=== PATIENT | male | born 1960 | race African-American/Black ===

== ENCOUNTER 2016-11-24 14:25 | Emergency (ER) | payer MEDICARE, MEDICAID ==
[2016-11-24 14:49] VITALS: BP 144/88
[2016-11-24] MEDS ORDERED: HYDROCODONE/ACETAMINOPHEN 5-325 MG 6 TAB/DSPK PO PRN (16:06)
--- NOTE | 2016-11-24 16:10 | ER Document Report ---
ED Hip Pain/Injury - General Chief Complaint: Hip Pain Stated Complaint: LEFT HIP PAIN Time Seen by Provider: 11/24/16 15:40 Mode of Arrival: Ambulatory Information source: Patient Notes: 56-year-old male presents to ED for complaint of pain with ambulation due to a hip replacement in January 2016. He states his been painful since then but states the pain is getting worse. He states that he went to his primary care today and they did not get any kind of pain medicine. States he has pain for his neuropathy and they have given him steroids at times but not give him any more narcotics. States that he does not go to his orthopedic doctor again today at some. States that they are doing a bone scan later this week for possible problems with the other hip now. TRAVEL OUTSIDE OF THE [place] IN LAST 30 DAYS: No - HPI Patient complains to provider of: Pain, Hip Occurred: Other - Since January Onset/Duration: Persistent Quality of pain: Pressure, Throbbing Severity: Moderate Pain Level: 3 Context: Other Symptoms prior to fall: None Symptoms since fall: None Rotation of extremity: None Pain with palpation of the pelvis: No Associated Symptoms: None - Related Data Allergies/Adverse Reactions: Penicillins Adverse Reaction (Mild, Verified 12/11/15 14:49) Nausea Past Medical History - General Information source: Patient - Social History Smoking Status: Never Smoker Cigarette use (# per day): No Chew tobacco use (# tins/day): No Smoking Education Provided: No Frequency of alcohol use: None Drug Abuse: None Occupation: Disabled Lives with: Friend Family History: Reviewed & Not Pertinent Patient has suicidal ideation: No Patient has homicidal ideation: No - Past Medical History Cardiac Medical History: Reports: Hx Hypercholesterolemia, Hx Hypertension Pulmonary Medical History: Reports: None EENT Medical History: Reports: None Neurological Medical History: Reports: None Endocrine Medical History: Reports: Hx Diabetes Mellitus Type 2 Renal/ Medical History: Reports: None Malignancy Medical History: Reports None GI Medical History: Reports: Hx Gastroesophageal Reflux Disease Musculoskeltal Medical History: Reports Hx Arthritis, Reports Hx Gout, Reports Hx Musculoskeletal Deformity Skin Medical History: Reports None Psychiatric Medical History: Reports: Hx Anxiety, Hx Depression - anxiety Traumatic Medical History: Reports: None Infectious Medical History: Reports: None Past Surgical History: Reports: Hx Orthopedic Surgery - Left hip replacement - Immunizations Hx Diphtheria, Pertussis, Tetanus Vaccination: Yes Review of Systems - Review of Systems Constitutional: No symptoms reported EENT: No symptoms reported Cardiovascular: No symptoms reported Respiratory: No symptoms reported Gastrointestinal: No symptoms reported Genitourinary: No symptoms reported Male Genitourinary: No symptoms reported Musculoskeletal: Other - Pain in left thigh. Full range of motion of hip but with pain in the thigh not to the hip joint. No swelling no change in appearance. States it hurts and he has to limp sometimes walk. Skin: No symptoms reported Hematologic/Lymphatic: No symptoms reported Neurological/Psychological: No symptoms reported -: Yes All other systems reviewed and negative Physical Exam - Vital signs Vitals: Temp Pulse Resp BP Pulse Ox 98.9 F 83 20 144/88 H 100 11/24/16 14:46 11/24/16 14:46 11/24/16 14:46 11/24/16 14:46 11/24/16 14:46 Interpretation: Normal - General General appearance: Appears well, Alert - HEENT Head: Normocephalic, Atraumatic Eyes: Normal Pupils: PERRL - Respiratory Respiratory status: No respiratory distress Chest status: Nontender Breath sounds: Normal Chest palpation: Normal - Cardiovascular Rhythm: Regular Heart sounds: Normal auscultation Murmur: No - Abdominal Inspection: Normal Distension: No distension Bowel sounds: Normal Tenderness: Nontender Organomegaly: No organomegaly - Back Back: Normal, Nontender - Extremities General upper extremity: Normal inspection, Nontender, Normal color, Normal ROM , Normal temperature General lower extremity: Normal inspection, Normal color, Normal ROM, Normal temperature, Normal weight bearing. No: Cristian's sign Thigh: Tender - Left femur proximal. States he had a hip replacement in January in the thighs hurt since then. No actual tenderness to the hip joint. No redness no swelling no signs of infection or inflammation. Patient is able to ambulate - Neurological Neuro grossly intact: Yes Cognition: Normal Orientation: AAOx4 Phu Coma Scale Eye Opening: Spontaneous [place] Coma Scale Verbal: Oriented [place] Coma Scale Motor: Obeys Commands Phu Coma Scale Total: 15 Speech: Normal Motor strength normal: LUE, RUE, LLE, RLE Sensory: Normal - Psychological Associated symptoms: Normal affect, Normal mood - Skin Skin Temperature: Warm Skin Moisture: Dry Skin Color: Normal Course - Re-evaluation Re-evalutation: 11/24/16 16:14 We will give patient a 6 pack of [place] told him he needs to follow-up with orthopedics right away if he continues to have pain. There is no signs or symptoms of any fracture he has not fallen has not injured himself. Have instructed patient that we cannot continue to give narcotics but we will give this one sixpack and he had and he needs to follow-up with his orthopedic doctor. - Vital Signs Vital signs: Temp Pulse Resp BP Pulse Ox 98.9 F 83 20 144/88 H 100 11/24/16 14:46 11/24/16 14:46 11/24/16 14:46 11/24/16 14:46 11/24/16 14:46 Discharge - Discharge Clinical Impression: Hip pain Qualifiers: Laterality: left Qualified Code(s): M25.552 - Pain in left hip Condition: Stable Disposition: HOME, SELF-CARE Additional Instructions: Chronic Pain Control Stress, inactivity, and depression make pain more severe regardless of the cause of the pain. Stress and poor physical condition can cause pain such as headaches and backache. Relaxation: Rest in a quiet place with your eyes closed for 20 minutes twice daily. Concentrate on a pleasant image, or simply "feel" your breathing. Clear your mind. Stress management: Deal with your "stressors." Either take action, or eliminate the stressor from your life. Don't let things hang over you. Accept those things you can't change. Nutrition: Eat small, balanced meals -- don't skip, don't overeat. Meals should be high-carbohydrate, low-sugar, low-fat. Exercise: Exercise helps painful conditions and eases stress. Get 30 minutes of moderate exercise, five days a week. Do an activity that does not flare your pain. Precautions: Pain which continues to disrupt daily activities, or which changes in nature, requires a medical evaluation. Pain Clinic referral is available. We do not manage chronic pain in the Emergency Department. 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 We do not provide repeated medication management of chronic painful conditions. If you wish, we can provide the name of local pain management physicians. Oral Narcotic Medication we do not usually treat chronic pain with narcotics but I will give you a sixpack to you can follow-up with the orthopedic doctor please call first thing in the morning and schedule an appointment as we will not be able to continue to give you [place] You have been given a [place] dispense pack for pain control. This medication is a narcotic. It's best taken with food, as nausea can result if taken on an empty stomach. Don't operate machinery or drive within six hours of taking this medication. Do not combine this medicine with alcohol, or with any medication which can cause sedation (such as cold tablets or sleeping pills) unless you get permission from the physician. Narcotics tend to cause constipation. If possible, drink plenty of fluids and eat a diet high in fiber and fruits. Ice Packs Apply ice packs frequently against the painful area. Many different schedules are recommended, such as "20 minutes on, 20 minutes off" or "one hour ice, two hours rest." If you need to work, you may need to go longer between ice treatments. You should plan to have the area ice packed AT LEAST one fourth of the time. The ice should be applied over the wrap, tape, or splint, or over a layer of cloth -- not directly against the skin. Some ice bags have a built-in cloth and can be put directly on the skin. USE OF [id number] IBUPROFEN: Ibuprofen (Advil, Nuprin, Medipren, Motrin IB) is a medication for fever and pain control. In addition, it has anti- inflammatory effects which may be beneficial, especially in the treatment of injuries. It's best to take ibuprofen with food. Persons with ulcer disease or allergy to aspirin should notify their physician of this before taking ibuprofen. Ibuprofen can be given every four to six hours, for a total of four doses daily. Age Pain or fever dose Antiinflammatory dose 6-8 yr 200 mg (1 tab) 200 mg (1 tab) 9-11 yr 200 mg (1 tab) 200-400 mg (1-2 tab) 11-14 yr 200-400 mg (1-2 tab) 400 mg (2 tab) 15-adult 400 mg (2 tab) 600 mg (3 tab) FOLLOW-UP CARE: If you have been referred to a physician for follow-up care, call the physician s office for an appointment as you were instructed or within the next two days. If you experience worsening or a significant change in your symptoms, notify the physician immediately or return to the Emergency Department at any time for re-evaluation. Forms: Elevated Blood Pressure
== END 2016-11-24 16:31 | disposition home or self-care (01) ==
LOC: ER 14:25
DX: M25.552 Pain in left hip (principal); Z96.642 Presence of left artificial hip joint; E11.40 Type 2 diabetes mellitus with diabetic neuropathy, unspecified; M79.652 Pain in left thigh; I10 Essential (primary) hypertension
CPT/HCPCS: 99283

== ENCOUNTER 2016-12-31 13:18 | Emergency (ER) | payer MEDICARE, MEDICAID ==
[2016-12-31] MEDS ORDERED: KETOROLAC TROMETHAMINE 60 MG/2 ML SDV IM ONE (14:39)
--- NOTE | 2016-12-31 14:45 | ER Document Report ---
ED Hip Pain/Injury - General Chief Complaint: Hip Injury Stated Complaint: HIP PAIN Time Seen by Provider: 12/31/16 14:29 Notes: 56 yo male c/o right groin pain x 2 days. pt reports pain while doing straight leg lifts. TRAVEL OUTSIDE OF THE [place] IN LAST 30 DAYS: No - HPI Patient complains to provider of: Pain Occurred: Yesterday Where: Home Onset/Duration: Gradual Quality of pain: Achy, Sharp Skin Color: Normal Skin Temperature: Warm Rotation of extremity: None Pain with palpation of the pelvis: No Associated Symptoms: None - Related Data Allergies/Adverse Reactions: Penicillins Adverse Reaction (Mild, Verified 12/31/16 13:22) Nausea Past Medical History - General Information source: Patient - Social History Smoking Status: Unknown if Ever Smoked Frequency of alcohol use: None Drug Abuse: None Lives with: Family Family History: Reviewed & Not Pertinent Patient has suicidal ideation: No Patient has homicidal ideation: No - Past Medical History Cardiac Medical History: Reports: Hx Hypercholesterolemia, Hx Hypertension Endocrine Medical History: Reports: Hx Diabetes Mellitus Type 2 Renal/ Medical History: Denies: Hx Peritoneal Dialysis GI Medical History: Reports: Hx Gastroesophageal Reflux Disease Musculoskeltal Medical History: Reports Hx Arthritis, Reports Hx Gout, Reports Hx Musculoskeletal Deformity Psychiatric Medical History: Reports: Hx Anxiety, Hx Depression - anxiety Past Surgical History: Reports: Hx Orthopedic Surgery - Left hip replacement - Immunizations Hx Diphtheria, Pertussis, Tetanus Vaccination: Yes Review of Systems - Review of Systems Constitutional: No symptoms reported EENT: No symptoms reported Cardiovascular: No symptoms reported Respiratory: No symptoms reported Gastrointestinal: No symptoms reported Genitourinary: No symptoms reported Male Genitourinary: No symptoms reported Musculoskeletal: No symptoms reported Skin: No symptoms reported Hematologic/Lymphatic: No symptoms reported Neurological/Psychological: No symptoms reported Physical Exam - Vital signs Vitals: Temp Pulse Resp BP Pulse Ox 98.1 F 78 20 122/74 99 12/31/16 13:22 12/31/16 13:22 12/31/16 13:22 12/31/16 13:22 12/31/16 13:22 Interpretation: Normal - General General appearance: Appears well, Alert - HEENT Head: Normocephalic, Atraumatic Eyes: Normal Pupils: PERRL - Respiratory Respiratory status: No respiratory distress Chest status: Nontender Breath sounds: Normal Chest palpation: Normal - Cardiovascular Rhythm: Regular Heart sounds: Normal auscultation Murmur: No - Abdominal Inspection: Normal Distension: No distension Bowel sounds: Normal Tenderness: Nontender Organomegaly: No organomegaly - Back Back: Normal, Nontender - Extremities General upper extremity: Normal inspection, Nontender, Normal color, Normal ROM , Normal temperature General lower extremity: Normal inspection, Normal color, Normal ROM, Normal temperature, Normal weight bearing Hip: Tender - focal tenderness over right hip flexors, ileopsoasis and sartorius muscles. no iliac tenderness. FROM with hip. distal SMC intact. able to walk without difficulty - Neurological Neuro grossly intact: Yes Cognition: Normal Orientation: AAOx4 Phu Coma Scale Eye Opening: Spontaneous [place] Coma Scale Verbal: Oriented [place] Coma Scale Motor: Obeys Commands Phu Coma Scale Total: 15 Speech: Normal Motor strength normal: LUE, RUE, LLE, RLE Sensory: Normal - Psychological Associated symptoms: Normal affect, Normal mood - Skin Skin Temperature: Warm Skin Moisture: Dry Skin Color: Normal Course - Re-evaluation Re-evalutation: 12/31/16 14:47 H&P c/w hip flexor strain. low risk for fracture, DVT. no neurovascular compromise. will treat with muscle relaxant and anti inflammatory. pt is agreeable with plan and stable for discharge - Vital Signs Vital signs: Temp Pulse Resp BP Pulse Ox 98.1 F 78 20 122/74 99 12/31/16 13:22 12/31/16 13:22 12/31/16 13:22 12/31/16 13:22 12/31/16 13:22 Discharge - Discharge Clinical Impression: Strain of flexor muscle of hip Qualifiers: Encounter type: initial encounter Laterality: right Qualified Code(s): S76.011A - Strain of muscle, fascia and tendon of right hip, initial encounter Disposition: HOME, SELF-CARE Instructions: Muscle Strain ([facility]), Muscle Relaxers ([facility]), Ibuprofen (General) ( [facility]) Additional Instructions: You have pulled a muscle in your groin please take medications as prescribed alternate ice/heat to area f/u with PT for further evaluation and treatment Prescriptions: Ibuprofen [Motrin 800 Mg Tablet] 800 mg PO Q6H #20 tablet Methocarbamol [Robaxin 500 Mg Tablet] 1,000 mg PO Q6 #30 tablet
[2016-12-31 15:02] VITALS: BP 127/66
== END 2016-12-31 15:01 | disposition home or self-care (01) ==
LOC: ER 13:18
DX: S76.011A Strain of muscle, fascia and tendon of right hip, initial encounter (principal); X58.XXXA Exposure to other specified factors, initial encounter; E11.9 Type 2 diabetes mellitus without complications; I10 Essential (primary) hypertension
CPT/HCPCS: 99283; 96372; J1885

== ENCOUNTER 2018-12-31 20:44 | Emergency (ER) | payer MEDICARE, MEDICAID ==
[2018-12-31] MEDS ORDERED: NORMAL SALINE 1000 ML 1,000 ML IV ONE (22:01)
--- NOTE | 2018-12-31 22:02 | ER Document Report ---
ED Medical Screen (RME) - General Chief Complaint: Abdominal Pain Stated Complaint: WEAKNESS Time Seen by Provider: 12/31/18 21:57 Primary Care Provider: ARELI JIMÉNEZ MD [Primary Care Provider] - Follow up as needed TRAVEL OUTSIDE OF THE [place] IN LAST 30 DAYS: No - HPI Notes: 12/31/18 22:01 Patient is a 58-year-old male with a history of hypertension and type 2 diabetes as well as chronic pain and on narcotics who presents complaining of generalized abdominal fullness and achiness with feeling weakness and fatigue over the past 1 to 2 days. Last bowel movement was yesterday. He is urinating normally. He is able to eat and drink, but does have decreased p.o. intake. Denies fever, chest pain, shortness of breath, vomiting, diarrhea, dysuria. No back pain. I have treated and performed a rapid initial assessment of this patient. A comprehensive ED assessment and evaluation of the patient, analysis of test results and completion of medical decision making process will be conducted by additional ED providers. PHYSICAL EXAMINATION: GENERAL: Well-appearing, well-nourished and in no acute distress. A&Ox4. Answers questions appropriately. - Related Data Allergies/Adverse Reactions: Penicillins Adverse Reaction (Mild, Verified 12/31/16 13:22) Nausea Home Medications: oxycodone prn. metformin 1000 mg qhs. gabapentin 300 mg qhs. rosuvastatin 10 mg qhs. propranolol 20 mg qday. omeprazole 20 mg qday. diltiazem ER 120 mg Past Medical History - Social History Frequency of alcohol use: quit x 5 yrs - Past Medical History Cardiac Medical History: Reports: Hx Hypercholesterolemia, Hx Hypertension Endocrine Medical History: Reports: Hx Diabetes Mellitus Type 2 Renal/ Medical History: Denies: Hx Peritoneal Dialysis GI Medical History: Reports: Hx Gastroesophageal Reflux Disease Musculoskeltal Medical History: Reports Hx Arthritis, Reports Hx Gout, Reports Hx Musculoskeletal Deformity Psychiatric Medical History: Reports: Hx Anxiety, Hx Depression - anxiety Past Surgical History: Reports: Hx Orthopedic Surgery - Left hip replacement - Immunizations Hx Diphtheria, Pertussis, Tetanus Vaccination: Yes Physical Exam - Vital signs Vitals: Temp Pulse Resp BP Pulse Ox 97.5 F 74 20 130/68 H 100 12/31/18 21:03 12/31/18 21:03 12/31/18 21:03 12/31/18 21:03 12/31/18 21:03 Course - Vital Signs Vital signs: Temp Pulse Resp BP Pulse Ox 97.5 F 74 20 130/68 H 100 12/31/18 21:03 12/31/18 21:03 12/31/18 21:03 12/31/18 21:03 12/31/18 21:03 Doctor's Discharge - Discharge Referrals: ARELI JIMÉNEZ MD [Primary Care Provider] - Follow up as needed
[2018-12-31 22:32] LABS: ABSOLUTE EOSINOPHILS # (AUTO) 0.2 10^3/uL (0.0-0.6); ABSOLUTE LYMPHOCYTES (AUTO) 1.6 10^3/uL (0.5-4.7); ABSOLUTE MONOCYTES (AUTO) 0.6 10^3/uL (0.1-1.4); ABSOLUTE NEUT (AUTO) 4.6 10^3/uL (1.7-8.2); BASOPHILS % (AUTO) 0.7 % (0-2); EOSINOPHILS % (AUTO) 2.3 % (0-6); HEMATOCRIT 38.1 % (37.9-51.0); HEMOGLOBIN 13.2 g/dL (13.5-17.0); MEAN CORPUSCULAR HEMOGLOBIN 30.4 pg (27.0-33.4); MEAN CORPUSCULAR HGB CONC 34.7 g/dL (32.0-36.0); MEAN CORPUSCULAR VOLUME 88 fl (80-97); MONOCYTES % (AUTO) 8.5 % (3-13); PLATELET COUNT 146 10^3/uL (150-450); RED BLOOD COUNT 4.36 10^6/uL (4.35-5.55); RED CELL DISTRIBUTION WIDTH 13.8 % (11.5-14.0); SEGMENTED NEUTROPHILS % (AUTO) 65.5 % (42-78); TOTAL CELLS COUNTED % (AUTO) 100 %
[2018-12-31 22:35] LABS: APPEARANCE,URINE SLIGHTLY-CLOUDY; BILIRUBIN,URINE NEGATIVE (NEGATIVE); COLOR,URINE YELLOW; GLUCOSE, URINE NEGATIVE (NEGATIVE); KETONES,URINE NEGATIVE (NEGATIVE); PROTEIN,URINE NEGATIVE (NEGATIVE); URINE SPECIFIC GRAVITY 1.025; UROBILINOGEN,URINE NEGATIVE mg/dL (<2.0)
[2018-12-31 22:46] LABS: ALBUMIN 4.8 g/dL (3.5-5.0); ALKALINE PHOSPHATASE 88 U/L (38-126); ANION GAP 13 (5-19); ASPARTATE AMINO TRANSFERASE 20 U/L (17-59); BILIRUBIN,DIRECT 0.1 mg/dL (0.0-0.4); BILIRUBIN,TOTAL 0.5 mg/dL (0.2-1.3); BLOOD UREA NITROGEN 21 mg/dL (7-20); CALCIUM 10.3 mg/dL (8.4-10.2); CARBON DIOXIDE 22 mmol/L (22-30); CHLORIDE 110 mmol/L (98-107); GLUCOSE 109 mg/dL (75-110); POTASSIUM 4.1 mmol/L (3.6-5.0); TOTAL PROTEIN 8.9 g/dL (6.3-8.2)
--- NOTE | 2018-12-31 22:47 | RADIOLOGY REPORT (SQ) ---
EXAM DESCRIPTION: [facility]: XR ABDOMEN 1 VIEW (KUB) CLINICAL HISTORY: 58 years Male, abd fullness/generalized pain COMPARISON: None. FINDINGS: Bowel gas pattern is within normal limits, with no significant distention. No pneumatosis. No suspicious calcifications. Multiple phleboliths are noted in the pelvis. Bilateral hip arthroplasties are partially visualized. Degenerative changes are noted in the lumbar spine. IMPRESSION: 1. No acute abdominal findings.
--- NOTE | 2019-01-01 00:31 | ER Document Report ---
ED General - General Chief Complaint: Abdominal Pain Stated Complaint: WEAKNESS Time Seen by Provider: 12/31/18 21:57 Primary Care Provider: ARELI JIMÉNEZ MD [Primary Care Provider] - Follow up as needed TRAVEL OUTSIDE OF THE [place] IN LAST 30 DAYS: No - HPI Notes: Is a very pleasant 58-year-old male who presents emergency department for evaluation of generalized weakness, just feeling poorly, and some abdominal pain. He states he has had some dizziness and generalized weakness for the last several days. He describes an abdominal pain that started yesterday, generalized in nature. He really cannot describe it for me. He states is constant, unaffected by food, activity. He states his been eating and drinking normally. He denies any nausea or vomiting. No fevers or chills. He had a normal bowel movement yesterday, he states it is not abnormal for him to go a d ay without a bowel movement. He denies any urinary symptoms. In regards to his dizziness he denies any vertiginous symptoms. He states he just feels slightly lightheaded intermittently. He denies any recent head injuries. No difficulty seeing, speaking, swallowing. He does have a known tremor in his right hand, that he states seems to have been worse over the last several weeks, but otherwise denies any other new neurological symptoms. - Related Data Allergies/Adverse Reactions: Penicillins Adverse Reaction (Mild, Verified 12/31/16 13:22) Nausea Home Medications: oxycodone prn. metformin 1000 mg qhs. gabapentin 300 mg qhs. rosuvastatin 10 mg qhs. propranolol 20 mg qday. omeprazole 20 mg qday. diltiazem ER 120 mg Past Medical History - General Information source: Patient - Social History Smoking Status: Never Smoker Frequency of alcohol use: quit x 5 yrs Family History: Reviewed & Not Pertinent Patient has suicidal ideation: No Patient has homicidal ideation: No - Past Medical History Cardiac Medical History: Reports: Hx Hypercholesterolemia, Hx Hypertension Endocrine Medical History: Reports: Hx Diabetes Mellitus Type 2 Renal/ Medical History: Denies: Hx Peritoneal Dialysis GI Medical History: Reports: Hx Gastroesophageal Reflux Disease Musculoskeletal Medical History: Reports Hx Arthritis, Reports Hx Gout, Reports Hx Musculoskeletal Deformity Psychiatric Medical History: Reports: Hx Anxiety, Hx Depression - anxiety Past Surgical History: Reports: Hx Orthopedic Surgery - Left hip replacement - Immunizations Hx Diphtheria, Pertussis, Tetanus Vaccination: Yes Review of Systems - Review of Systems Constitutional: See HPI EENT: No symptoms reported Cardiovascular: No symptoms reported Respiratory: No symptoms reported Gastrointestinal: No symptoms reported Genitourinary: No symptoms reported Musculoskeletal: No symptoms reported Skin: No symptoms reported Neurological/Psychological: See HPI Physical Exam - Vital signs Vitals: Temp Pulse Resp BP Pulse Ox 97.5 F 74 20 130/68 H 100 12/31/18 21:03 12/31/18 21:03 12/31/18 21:03 12/31/18 21:03 12/31/18 21:03 - Notes Notes: This is a very pleasant 58-year-old male who appears older than his stated age, in no acute distress. Vital signs reviewed, please refer to chart. Head is normocephalic, atraumatic. Pupils equal round, reactive to light. Neck is supple without meningismus. Heart is regular rate and rhythm. Lungs are clear to auscultation bilaterally. Abdomen is soft, nontender, normoactive bowel sounds throughout. Extremities without cyanosis, clubbing. Posterior calves are nontender. Peripheral pulses are equal. Skin is warm and dry. Patient is awake, alert, oriented x3. Cranial nerves II - XII are grossly intact without focal neurological deficits. Strength is plus 5 out of 5 bilateral upper and lower extremities. Sensation is intact. Reflexes symmetrical. Intact finger- nose-finger, rapid alternating movements, [id number]. No pronator drift noted, but he does have increased tremor at the wrist at the right upper extremity. Course - Re-evaluation Re-evalutation: 01/01/19 00:29 Is a very pleasant 58-year-old male who presents emergency department for evaluation of dizziness, weakness, abdominal pain. On exam, he has no focal neurological deficits. His abdomen is in fact entirely nontender. He states he is feeling significantly improved after a small amount of IV fluids here. Laboratory investigations were ordered and failed to reveal any significant abnormality. KUB was unremarkable. In light of his lack of objective findings, and mild improvement in his symptoms, I am inclined to discharge this patient. I explained to him that I do not have a clear etiology for his pain, but any worsening of his symptoms should prompt his immediate return. He voiced understanding. Otherwise he is to follow-up with his primary care physician in [facility] on Thursday. - Vital Signs Vital signs: Temp Pulse Resp BP Pulse Ox 97.5 F 74 20 130/68 H 100 12/31/18 21:03 12/31/18 21:03 12/31/18 21:03 12/31/18 21:03 12/31/18 21:03 - Laboratory Result Diagrams: 12/31/18 22:14 12/31/18 22:14 Laboratory results interpreted by me: 12/31/18 12/31/18 22:14 22:14 Hgb 13.2 L Plt Count 146 L Sodium 145.1 H Chloride 110 H BUN 21 H Calcium 10.3 H Total Protein 8.9 H - Diagnostic Test Radiology reviewed: Reports reviewed Radiology results interpreted by me: 01/01/19 00:30 KUB X-Ray 12/31/18 22:00 IMPRESSION: 1. No acute abdominal findings. - EKG Interpretation by Me Additional EKG results interpreted by me: 01/01/19 00:30 Sinus mechanism with a rate of 81 bpm. Left axis deviation, mild IVCD. Nonspecific ST changes, but no acute changes concerning for ischemia or infarct ion. There are no old studies available for comparison. Discharge - Discharge Clinical Impression: Dizziness, Generalized abdominal pain Condition: Stable Disposition: HOME, SELF-CARE Instructions: Abdominal Pain ([facility]), Dizziness ([facility]) Additional Instructions: No clear cause was found for your symptoms today. Please follow-up closely with your primary care provider on Thursday. If you develop increased pain, dizziness, difficulty seeing, speaking or swallowing, focal weakness, or any other new or concerning symptoms, please return immediately to the emergency department for reevaluation. Referrals: ARELI JIMÉNEZ MD [Primary Care Provider] - Follow up as needed
[2019-01-01 00:40] VITALS: BP 121/68
--- NOTE | 2019-01-01 11:50 | EKG REPORT ---
SEVERITY:- OTHERWISE NORMAL ECG - SINUS RHYTHM LEFT AXIS DEVIATION : Confirmed by: Rebecca Meraz MD 01-Jan-2019 11:49:23
== END 2019-01-01 00:52 | disposition home or self-care (01) ==
LOC: ER 20:44
DX: R42 Dizziness and giddiness (principal); R53.1 Weakness; R10.84 Generalized abdominal pain; R25.1 Tremor, unspecified; I45.9 Conduction disorder, unspecified; I10 Essential (primary) hypertension; E78.00 Pure hypercholesterolemia, unspecified; K21.9 Gastro-esophageal reflux disease without esophagitis; E11.9 Type 2 diabetes mellitus without complications; Z79.84 Long term (current) use of oral hypoglycemic drugs; Z79.899 Other long term (current) drug therapy
CPT/HCPCS: 93005; 99284; 36415; 83690; 85025; 80053; 81001; 74018; 93010; J7030; 96361

== ENCOUNTER 2019-09-09 20:27 | Emergency (ER) | payer MEDICARE, MEDICAID ==
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
[2019-09-10 00:33] VITALS: BP 146/86
== END 2019-09-09 23:30 | disposition home or self-care (01) ==
LOC: ER 20:27
DX: S00.83XA Contusion of other part of head, initial encounter (principal); Y04.2XXA Assault by strike against or bumped into by another person, initial encounter; Y92.009 Unspecified place in unspecified non-institutional (private) residence as the place of occurrence of the external cause; R07.0 Pain in throat; M62.838 Other muscle spasm; I10 Essential (primary) hypertension; E11.9 Type 2 diabetes mellitus without complications; Z79.84 Long term (current) use of oral hypoglycemic drugs; Z79.899 Other long term (current) drug therapy; Z79.891 Long term (current) use of opiate analgesic; G89.29 Other chronic pain
CPT/HCPCS: 70486; 72125; 99284

== ENCOUNTER 2019-10-29 12:08 | Emergency (ER) | payer MEDICARE, MEDICAID ==
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
--- NOTE | 2019-10-29 13:01 | RADIOLOGY REPORT (SQ) ---
EXAM DESCRIPTION: L SPINE WHOLE IMAGES COMPLETED DATE/TIME: 10/29/2019 12:50 pm REASON FOR STUDY: low back pain COMPARISON: MRI lumbar spine 05/06/2018 NUMBER OF VIEWS: Five views including obliques. TECHNIQUE: AP, lateral, oblique, and sacral radiographic images acquired of the lumbar spine. LIMITATIONS: None. FINDINGS: MINERALIZATION: Normal. SEGMENTATION: Normal. No transitional anatomy. ALIGNMENT: Normal, apart from a grade 1 anterolisthesis of L5 on S1. VERTEBRAE: Maintained height. No fracture or worrisome bone lesion. DISCS: Multilevel disc space narrowing with osteophytes. POSTERIOR ELEMENTS: Pedicles and facets are intact. Known pars defects at L5 are not well-visualized . Facet arthropathy is present. HARDWARE: None in the spine. Bilateral hip prostheses are partially visualized. PARASPINAL SOFT TISSUES: Normal. PELVIS: Intact as visualized. No fractures or worrisome bone lesions. SI joints intact. OTHER: No other significant finding. IMPRESSION: Grade 1 anterolisthesis of L5 on S1, presumably on the basis of previously described par s defects which are not well visualized on this study. Otherwise, mild multilevel degenerative changes in the lumbar spine without acute fracture. TECHNICAL DOCUMENTATION: JOB ID: [id number] 2010 [employer]- All Rights Reserved Reading location - IP/workstation name: [email or web address]
[2019-10-29 13:11] LABS: ABSOLUTE EOSINOPHILS # (AUTO) 0.1 10^3/uL (0.0-0.6); ABSOLUTE LYMPHOCYTES (AUTO) 1.2 10^3/uL (0.5-4.7); ABSOLUTE MONOCYTES (AUTO) 0.5 10^3/uL (0.1-1.4); ABSOLUTE NEUT (AUTO) 3.4 10^3/uL (1.7-8.2); BASOPHILS % (AUTO) 0.7 % (0-2); EOSINOPHILS % (AUTO) 2.7 % (0-6); HEMOGLOBIN 12.2 g/dL (13.5-17.0); LYMPHOCYTES % (AUTO) 22.5 % (13-45); MEAN CORPUSCULAR HEMOGLOBIN 29.7 pg (27.0-33.4); MEAN CORPUSCULAR HGB CONC 34.9 g/dL (32.0-36.0); MEAN CORPUSCULAR VOLUME 85 fl (80-97); MONOCYTES % (AUTO) 8.7 % (3-13); PLATELET COUNT 149 10^3/uL (150-450); RED BLOOD COUNT 4.11 10^6/uL (4.35-5.55); RED CELL DISTRIBUTION WIDTH 13.8 % (11.5-14.0); SEGMENTED NEUTROPHILS % (AUTO) 65.4 % (42-78); TOTAL CELLS COUNTED % (AUTO) 100 %; WHITE BLOOD COUNT 5.2 10^3/uL (4.0-10.5)
[2019-10-29 13:18] LABS: APPEARANCE,URINE CLEAR; BILIRUBIN,URINE NEGATIVE (NEGATIVE); COLOR,URINE YELLOW; GLUCOSE, URINE NEGATIVE (NEGATIVE); KETONES,URINE NEGATIVE (NEGATIVE); LEUKOCYTE ESTERASE,URINE NEGATIVE (NEGATIVE); NITRITE,URINE NEGATIVE (NEGATIVE); PROTEIN,URINE NEGATIVE (NEGATIVE)
[2019-10-29 13:34] LABS: ALBUMIN 4.6 g/dL (3.5-5.0); ALKALINE PHOSPHATASE 87 U/L (38-126); ANION GAP 12 (5-19); ASPARTATE AMINO TRANSFERASE 23 U/L (17-59); BILIRUBIN,DIRECT 0.3 mg/dL (0.0-0.4); BILIRUBIN,TOTAL 0.9 mg/dL (0.2-1.3); BLOOD UREA NITROGEN 18 mg/dL (7-20); CALCIUM 9.7 mg/dL (8.4-10.2); CARBON DIOXIDE 23 mmol/L (22-30); CHLORIDE 105 mmol/L (98-107); GLUCOSE 106 mg/dL (75-110); POTASSIUM 4.5 mmol/L (3.6-5.0); TOTAL PROTEIN 8.1 g/dL (6.3-8.2)
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
[2019-10-29 14:12] VITALS: BP 103/67
== END 2019-10-29 14:12 | disposition home or self-care (01) ==
LOC: ER 12:08
DX: M47.816 Spondylosis without myelopathy or radiculopathy, lumbar region (principal); M43.16 Spondylolisthesis, lumbar region; M54.9 Dorsalgia, unspecified; M54.5 Low back pain; Y08.89XD Assault by other specified means, subsequent encounter; Z88.0 Allergy status to penicillin; I10 Essential (primary) hypertension; E11.9 Type 2 diabetes mellitus without complications
CPT/HCPCS: 36415; 72110; 80053; 81001; 85025; 99284